=== PATIENT | female | born 1945 | race Caucasian/White ===

== ENCOUNTER 2016-12-25 17:38 | Emergency (ER) | payer MEDICARE, OTHER ==
[2016-12-25 13:04] LABS: BASOPHILS ABSOLUTE 0.04 10/3/uL (0.0-0.16); EOSINOPHILS 7.2 %; EOSINOPHILS ABSOLUTE 0.28 10/3/uL (0.0-0.53); ER CBC TAT 0 Hrs 03 Mins; LYMPHOCYTES 33.9 %; LYMPHOCYTES ABSOLUTE 1.32 10/3/uL (0.67-4.30); MEAN CORPUSCULAR HEMOGLOB 30.5 pg (26.0-34.0); MEAN PLATELET VOLUME 9.2 fL (9.2-13.0); MONOCYTES 9.8 %; MONOCYTES ABSOLUTE 0.38 10/3/uL (0.21-1.20); NEUTROPHILS 48.1 %; NEUTROPHILS ABSOLUTE 1.87 10/3/uL (2.02-8.40); PLATELET COUNT 194 10/3/uL (150-400); RBC DISTRIBUTION WIDTH 13.1 % (12.0-16.0); WHITE BLOOD CELLS 3.9 10/3/uL (4.5-10.5)
[2016-12-25 13:06] LABS: HEMATOCRIT 34.9 % (36.0-48.0); HEMOGLOBIN 11.9 g/dL (12.0-16.0); MANUAL DIFF NO %; MEAN CORPUS HGB CONC 34.1 g/dL (32.0-36.0); MEAN CORPUSCULAR VOLUME 89.5 fL (80-100)
[2016-12-25 13:20] LABS: A/G RATIO 0.9 (0.7-1.9); ALBUMIN 3.2 G/DL (3.5-5.0); ALKALINE PHOSPHATASE 66 U/L (45-117); BUN (BLOOD UREA NITROGEN) 7 MG/DL (6-23); CALCIUM, SERUM 9.1 MG/DL (8.5-10.4); CHLORIDE, SERUM 103 MMOL/L (96-112); CO2 (CARBON DIOXIDE) 29 MMOL/L (24-34); CREATININE 0.74 MG/DL (0.55-1.02); GFR AFRICAN AMERICAN 94 ML/MIN (>=60); GFR NON AFRICAN AMERICAN 82 ML/MIN (>=60); GLOBULIN 3.5 G/DL (2.5-4.1); SGOT(AST) 12 U/L (5-40); SGPT(ALT) 15 U/L (5-65); SODIUM, SERUM 141 MMOL/L (135-148); TOTAL BILIRUBIN 0.5 MG/DL (0-1.2); TOTAL PROTEIN 6.7 G/DL (6.0-8.5)
[2016-12-25 13:22] LABS: GLUCOSE, SERUM 184 MG/DL (60-99)
[~2016-12-25 17:38] MED LIST: AMIT25 PO; ANALPRAM HC 1-230 GM PR; ANUSOL HC SUPP1 SUPP PR; ASAB PO; AVINZA30 PO; B121000P IM; BENTYL10 PO; BENTYL20 PO; BRINT10T PO; BRINT20T PO; BRINTELLIX; CARD120 PO; CARDCD120 PO; CEFT5 PO; CENTRUM TAB1 TAB PO; CYMBALTA30 PO; CYMBALTA60 PO; DIL4TAB PO; DOLOPHINE10 MG PO; DOLOPHINE5 MG PO; DSS PO; Demerol; EFFEX75 PO; EMBEDA1 CA1 PO; FIBERCHOICE PO; FISH-EPA1000 MG PO; FLEX PO; GLUCCHONDR PO; HUMALOGMIX SC; HUMOLOG; HYOMAX-FT0.125 MG PO; INSULIN NOVOLOG; INSULIN NOVOLOG SQ; JANTOVEN5 MG PO; KLONO1 PO; KLONO2 PO; KLONO5 PO; KLOR-CON 1010 MEQ PO; L20 PO; L40 PO; LANTUS; LANTUS FOR SC; LANTUS SC; LANTUSCART SC; LEVAQUIN750 MG PO; LEVEMFLXPN SC; LEVEMIR SC; LEVOTHYROXIN25 MCG PO; LEVOTHYROXINE; LIDODERM T; LIPITOR10 PO; LIPITOR20 PO; LOP25 PO; LYRICA25 PO; LYRICA75 PO; MAGNESIUM PO; MEP50TAB PO; METAMUCIL CAN7 OZ PO; METHATAB10 PO; METHATAB5B PO; METHOC750B PO; MIRALAXPKT PO; MSCONT15 PO; MSIMMR15 PO; MYSOLINE 50 MG50 MG PO; NITROQUICK0.4 MG SL; NITROSTAT0.4 MG SL; NOVOLOG; NOVOLOG SC; NOVOLOGMIX SC; PAX20 PO; PEP20 PO; PHENERGAN25 MG/ML; PR25 PO; PREDFORTE OPH; PREDNISOL5 PO; PREMIDONE; PRILOSEC40 MG PO; PRIM50B PO; PROTONIX PO; PYR100B PO; REG PO; ROBAXIN; RYTHMOL150 MG PO; RYTHMOL300 MG PO; STOOL SOFTEN100 MG PO; SUCR PO; SYN.025B PO; SYN125 PO; ULTRAM50 PO; VIB100 PO; VITAMIN B-121000 MC1 SL; VITAMIN D31000 UNIT PO; WELLSR150 PO; WELLXL300 PO; XARELTO20 MG PO; ZANAFLEX 4 MG TA4 MG PO; ZETIA PO; ZOCOR20 PO; ZOFRAN8 PO; ZOFRANODT8 PO; ZOL100 PO; [UNRECOGNIZED DRUG - OTHER]; [UNRECOGNIZED DRUG - OTHER] PO; [UNRECOGNIZED DRUG - OTHER] PO; [UNRECOGNIZED DRUG - OTHER] PO
[2017-01-02] MEDS ORDERED: KLONO5 PO (16:09)
[2017-01-02] MEDS ORDERED: VENTOLIN HFA INH (16:17)
== END 2016-12-25 17:43 | disposition home or self-care (01) ==
LOC: ER 17:38
PROVIDERS: Physician Assistant
DX: R05 Cough (principal); M25.571 Pain in right ankle and joints of right foot; I48.91 Unspecified atrial fibrillation; Z88.5 Allergy status to narcotic agent; Z88.6 Allergy status to analgesic agent; Z79.899 Other long term (current) drug therapy
CPT/HCPCS: 71010; 71275; 73610-RT; 80053; 85025; 87040; 93005; 94640; 99285; Q9967